=== PATIENT | female | born 1950 | race Caucasian/White ===

== ENCOUNTER → 2017-11-07 | Outpatient (CLI) | payer OTHER ==
[~2017-11-07] MED LIST: ACET-1966 PO; ACYC-50 PO; ALBU8.5H IH; AMIT-104 PO; CELE100C79 PO; CEPH-13 PO; DIAZ-305 PO; DICL1ADH32 TD; DILT120T PO; DILT240C4 PO; DILT360C3 PO; DILT360T PO; HYDR-385 PO; HYDR-4309 PO; IBAN150T6 PO; LIDO700A29 TD; MEPE100T3 PO; META800T18 PO; MULT1TAB64 PO; NAPR-1043 PO; OXYC-865 PO; PER PO; POTA20TA85 PO; TRAM-420 PO; VALA500T66 PO; ZOLP12.546 PO; ZOLP12.548 PO
--- NOTE | 2017-11-07 20:17 | RADIOLOGY IMAGING REPORT ---
FACILITY: [facility] [place] PATIENT NAME: Shirlene Christianson : 1950 MR: [id number] V: [id number] EXAM DATE: ORDERING PHYSICIAN: DANIEL RAMOS TECHNOLOGIST: Location: [facility] [place] Patient: Shirlene Christianson : 1950 Visit/Account:[id number] Date of Sevice: 11/07/2017 EXAMINATION: Lumbar spine, 4 views with obliques 11/07/2017 6:02 PM HISTORY: Lower back pain COMPARISON: CT 12/13/2016, MR 12/13/2012. FINDINGS: Images include AP lateral and both obliques. 5 nonrib-bearing lumbar vertebral levels. P revious L5 laminectomy and anterior and posterior L5-S1 fusion. Metallic fixation is intact. Alignm ent at the fused levels is normal. Mild dextroscoliotic lumbar curvature with the apex at L3. Endpl ate spurring throughout the lumbar spine with disc height loss most notably at L4-5 which lateralizes towards the right, with milder disc height loss at L2-3 lateralizing towards the concave left side o f the dextroscoliotic curvature. 4 mm anterolisthesis of L3 on L4 has probably increased slightly. No acute bony finding. Vertebral body heights are well-preserved. IMPRESSION: 1. Previous L5-S1 fusion with stable alignment. 2. Stable mild dextroscoliotic lumbar curvature and diffuse spondylosis. Changes are most notable a t L2-3 and L4-5 with degenerative L2-3 anterolisthesis which is probably increased slightly since 201 7. Report Dictated By: Denzel Pal MD at 11/07/2017 8:09 PM Report E-Signed By: Denzel Pal MD at 11/07/2017 8:13 PM WSN:[id number]
== END ==
LOC: RAD 17:53
PROVIDERS: ATTEND Chiropractor
DX: M41.86 Other forms of scoliosis, lumbar region (principal); M47.894 Other spondylosis, thoracic region; M51.26 Other intervertebral disc displacement, lumbar region
CPT/HCPCS: 72120

== ENCOUNTER → 2017-12-06 | Outpatient (CLI) | payer MEDICARE, OTHER ==
[~2017-12-06] VITALS: Ht 165.1 cm; Wt 58.1 kg
[~2017-12-06] MED LIST changes: +ACETAMINOPHEN 500 MG TAB PO ONE; +DILT360C35 PO; +FAMOTIDINE 20 MG TAB PO ONE; +LIDOCAINE/SOD BICARB 8.4% SYR ID ONE; +MIDAZOLAM 2 MG/2 ML VIAL IVP PRN; +NORMOSOL R SOLN(*) 1000 ML BAG 1,000 ML IV PRN; +PREGABALIN 150 MG CAPSULE PO ONE; +ceFAZolin(*) 1 GM VIAL 1 GM in NS(*) 0.9% 100 ML ADDVANT BAG 100 ML IVPB ONE
[2017-12-06 01:26] LABS: PLATELET COUNT, AUTOMATED 344 K/uL (150-450)
== END ==
LOC: LAB 08:00 → EDSTATUS 12-14 13:00
PROVIDERS: ATTEND Orthopaedic Surgery
DX: Z01.812 Encounter for preprocedural laboratory examination (principal); Z01.810 Encounter for preprocedural cardiovascular examination; M48.061 Spinal stenosis, lumbar region without neurogenic claudication; I12.9 Hypertensive chronic kidney disease with stage 1 through stage 4 chronic kidney disease, or unspecified chronic kidney disease; N18.9 Chronic kidney disease, unspecified; F32.9 Major depressive disorder, single episode, unspecified; F41.9 Anxiety disorder, unspecified; I49.9 Cardiac arrhythmia, unspecified; R73.03 Prediabetes
CPT/HCPCS: 36415; 82040; 82247; 82310; 82374; 82435; 82565; 82947; 83036; 84075; 84132; 84155; 84295; 84450; 84460; 84520; 85025

== ENCOUNTER → 2017-12-07 | Outpatient (CLI) | payer MEDICARE, OTHER ==
[~2017-12-07] MED LIST changes: -ACETAMINOPHEN 500 MG TAB PO ONE; -DILT360C35 PO; -FAMOTIDINE 20 MG TAB PO ONE; -LIDOCAINE/SOD BICARB 8.4% SYR ID ONE; -MIDAZOLAM 2 MG/2 ML VIAL IVP PRN; -NORMOSOL R SOLN(*) 1000 ML BAG 1,000 ML IV PRN; -PREGABALIN 150 MG CAPSULE PO ONE; -ceFAZolin(*) 1 GM VIAL 1 GM in NS(*) 0.9% 100 ML ADDVANT BAG 100 ML IVPB ONE
== END ==
LOC: RESP 16:31
PROVIDERS: ATTEND Orthopaedic Surgery
DX: Z01.810 Encounter for preprocedural cardiovascular examination (principal); Z01.812 Encounter for preprocedural laboratory examination; M48.00 Spinal stenosis, site unspecified
CPT/HCPCS: 93005

== ENCOUNTER → 2017-12-13 | Outpatient (CLI) | payer MEDICARE ==
[~2017-12-13] MED LIST changes: +DILT360C35 PO
== END ==
LOC: LAB 09:50
PROVIDERS: ATTEND Internal Medicine
DX: E87.1 Hypo-osmolality and hyponatremia (principal)
CPT/HCPCS: 36415; 82310; 82374; 82435; 82565; 82947; 84132; 84295; 84520

== ENCOUNTER → 2018-06-22 | Outpatient (CLI) | payer MEDICARE, OTHER ==
[~2018-06-22] MED LIST changes: -HYDR-4309 PO; +HYDR-653 PO
== END ==
LOC: LAB 16:29
PROVIDERS: ATTEND Internal Medicine
DX: E87.1 Hypo-osmolality and hyponatremia (principal)
CPT/HCPCS: 36415; 82310; 82374; 82435; 82565; 82947; 84132; 84295; 84520